=== PATIENT | male | born 2000 | race Caucasian/White ===

== ENCOUNTER → 2023-07-04 07:03 | Outpatient (REF) | payer BC, SELFPAY ==
[2023-07-04 08:34] LABS: % Basophils 0.8 % (0-2); % Eosinophils 2.3 % (0-6); % Immature Granulocytes 0.4 % (0-0.5); % Lymphocytes 35.3 % (20.5-51.1); % Monocytes 9.9 % (1.7-9.3); % Neutrophils 51.3 % (42.2-75.2); Absolute Eosinophils 0.1 10^3/uL (0-0.7); Absolute Lymphocytes 1.7 10^3/uL (1.2-3.4); Absolute Monocytes 0.5 10^3/uL (0.1-0.6); Absolute Neutrophils 2.5 10^3/uL (1.4-6.5); Hematocrit 45.2 % (39.0-52.0); Hemoglobin 15.3 g/dL (13.0-18.0); Mean Corp Hgb Conc. 33.8 g/dL (33.0-37.0); Mean Corpuscular Hgb 29.4 pg (27.0-31.0); Mean Corpuscular Volume 86.8 fL (80.0-94.0); Mean Platelet Volume 10.1 fL (7.4-10.4); Nucleated Red Blood Cells % 0 % (-); Platelet Count 231 10^3/uL (130-400); Red Blood Cell Count 5.21 10^6/uL (4.70-6.10); Red Cell Dist. Width 11.7 % (11.5-14.5); White Blood Cell Count 4.9 10^3/uL (4.8-10.8)
[2023-07-04 09:31] LABS: ALT (SGPT) 18 U/L (0-50); AST (SGOT) 24 U/L (17-59); Albumin 4.8 g/dl (3.5-5.0); Alkaline Phosphatase 71 U/L (38-126); Blood Urea Nitrogen 14 mg/dl (9-20); Calcium 9.4 mg/dl (8.4-10.2); Carbon Dioxide 27 mmol/L (22-30); Chloride 104 mmol/L (98-107); Glucose 79 mg/dl (70-99); HDL Cholesterol 74 mg/dl; LDL Cholesterol, Calculated 81 mg/dl; Potassium 4.1 mmol/L (3.5-5.1); Sodium 138 mmol/L (135-145); Total Bilirubin 2.3 mg/dl (0.2-1.3); Total Cholesterol 164 mg/dl (50-199); Total Protein 7.6 g/dl (6.3-8.2); Triglyceride 49 mg/dl (10-149); Very Low Density Lipoprotein 9 mg/dl (0-30); eGFR > 60.00
== END ==
LOC: REG 07:03
PROVIDERS: ATTENDING PHYSICIAN Physician Assistant
DX: R42 Dizziness and giddiness (principal); Z82.49 Family history of ischemic heart disease and other diseases of the circulatory system; Z13.220 Encounter for screening for lipoid disorders
CPT/HCPCS: 36415; 80053; 80061; 85025

== ENCOUNTER 2023-09-01 18:07 | Emergency (ER) | payer BC, SELFPAY ==
[2023-09-01 18:12] VITALS: BP 120/82
[2023-09-01 18:30] LABS: % Basophils 0.5 % (0-2); % Eosinophils 1.3 % (0-6); % Immature Granulocytes 0.3 % (0-0.5); % Neutrophils 60.9 % (42.2-75.2); Absolute Eosinophils 0.1 10^3/uL (0-0.7); Absolute Lymphocytes 2.2 10^3/uL (1.2-3.4); Absolute Monocytes 0.6 10^3/uL (0.1-0.6); Absolute Neutrophils 4.7 10^3/uL (1.4-6.5); Hemoglobin 14.2 g/dL (13.0-18.0); Mean Corp Hgb Conc. 34.6 g/dL (33.0-37.0); Mean Corpuscular Hgb 29.5 pg (27.0-31.0); Mean Corpuscular Volume 85.2 fL (80.0-94.0); Mean Platelet Volume 9.7 fL (7.4-10.4); Nucleated Red Blood Cells % 0 % (-); Platelet Count 224 10^3/uL (130-400); Red Blood Cell Count 4.81 10^6/uL (4.70-6.10); Red Cell Dist. Width 11.8 % (11.5-14.5); White Blood Cell Count 7.7 10^3/uL (4.8-10.8)
[2023-09-01 18:40] LABS: ALT (SGPT) 14 U/L (0-50); AST (SGOT) 23 U/L (17-59); Albumin 4.9 g/dl (3.5-5.0); Alkaline Phosphatase 69 U/L (38-126); Blood Urea Nitrogen 18 mg/dl (9-20); Carbon Dioxide 27 mmol/L (22-30); Chloride 102 mmol/L (98-107); Glucose 91 mg/dl (70-99); Potassium 4.3 mmol/L (3.5-5.1); Sodium 136 mmol/L (135-145); Total Bilirubin 2.1 mg/dl (0.2-1.3); Total Protein 7.4 g/dl (6.3-8.2); eGFR > 60.00
[2023-09-01 22:26] LABS: Lipase 111 U/L (23-300)
--- NOTE | 2023-09-01 23:44 | ED.GENMED ---
History of Present Illness
<Gretchen Steven NP - Last Filed: 09/03/23 15:06>
General
Chief Complaint: Abdominal Pain
Source: patient and family
Exam Limitations: none
Time Seen by Provider: 09/01/23 21:37
Nursing documentation reviewed up to this point in time: agreed with
Travel History
Have you had any contact with someone who has COVID-19?: No
Do you have any symptoms of coronavirus? Fever > 100 degrees, chills, cough, shortness of breath, sore throat, loss of taste or smell, muscle aches, or headache?: No
History of Present Illness
History of Present Illness:
Patient to ED with complaint of RLQ and flank pain. SYmptoms started last PM and continued to worsen. Denies fever/chill. +nausea. No vomiting or diarrhea. Brought to ED by mother for eval. NO prior history of same.
Past History
<Grecthen Steven NP - Last Filed: 09/03/23 15:06>
Past History
ED Past Medical History: None
ED Past Surgical History: None
Patient has exhibited threatening behavior?: No
Review of Systems
<Gretchen Steven NP - Last Filed: 09/03/23 15:06>
Review of Systems
Allergies reviewed?: Yes
All Other Systems: ROS reviewed and negative except as documented in HPI and ROS
Constitutional: Reports no symptoms
EENT: Reports no symptoms
Respiratory: Reports no symptoms
Cardiac: Reports no symptoms
ABD/GI: Reports abdominal pain (RLQ and flank pain)
: Reports no symptoms
Musculoskeletal: Reports no symptoms
Skin: Reports no symptoms
Neurological: Reports no symptoms
Psychiatric: Reports no symptoms
Phy Exam
<Gretchen Steven NP - Last Filed: 09/03/23 15:06>
General Physical Exam
General Presentation: well appearing and no apparent distress
General age: appears stated age
General Skin: warm and dry
General Habitus: normal
General Mental: alert
Cardiovascular Exam
Cardiovascular Exam: regular rate/rhythm and no edema
Pulmonary Exam
Pulmonary Exam: lungs clear, no respiratory distress and chest non tender
Gastrointestinal Exam
Gastrointestinal Exam: normal bowel sounds, soft, no organomegaly, no pulsatile mass, non distended and no cva tenderness
Palpation: right lower quadrant: Moderate tenderness
Musculoskeletal Exam
Musculoskeletal Exam: full ROM and neuro vasc intact
Skin Exam
Skin Exam: normal color, warm/dry and no rash
Psychiatric Exam
Psychiatric Exam: normal mood/affect
Course
<Gretchen Steven, [employer] - Last Filed: 09/03/23 15:06>
Orders/Labs/Results
Orders:
Orders
09/01/23 18:19
Complete Blood Count/With Diff Urgent
Comprehensive Metabolic Panel Urgent
Lipase Urgent
09/01/23 21:54
US Abdomen - Appendix Only Urgent
Comment:
Reason For Exam: RLQ pain
US Abdomen Complete/Upper Urgent
Comment:
Reason For Exam: RUQ, flank pain
09/01/23 21:55
Add On- LAB Urgent
Tests Added?: Lipase
09/01/23 22:59
CT Abd/pelvis W Iv Cont Urgent
Comment:
Reason For Exam: RLQ pain
09/01/23 23:33
Urinalysis Reflex To Culture Urgent
Date Specimen was Collected: 09/01/23
Time Specimen was Collected: 23:27
Abnormal Lab Results
09/01/23 09/01/23
18:19 23:33
Total Bilirubin 2.1 H mg/dl
(0.2-1.3)
Urine Ketones 2+ A
(Negative)
09/01/23 18:19
09/01/23 18:19
Vital Signs
Initial and Last Documented VS:
Initial Vital Signs
Temp Pulse Resp BP Pulse Ox
98.6 F 69 18 120/82 99
09/01/23 18:12 09/01/23 18:12 09/01/23 18:12 09/01/23 18:12 09/01/23 18:12
Last Documented Vital Signs
Temp Pulse Resp BP Pulse Ox
98.6 F 69 18 120/82 99
09/01/23 18:12 09/01/23 18:12 09/01/23 18:12 09/01/23 18:12 09/01/23 18:12
<Linus Perea, DO - Last Filed: 09/02/23 00:37>
Orders/Labs/Results
Orders:
Orders
09/01/23 18:19
Complete Blood Count/With Diff Urgent
Comprehensive Metabolic Panel Urgent
Lipase Urgent
09/01/23 21:54
US Abdomen - Appendix Only Urgent
Comment:
Reason For Exam: RLQ pain
US Abdomen Complete/Upper Urgent
Comment:
Reason For Exam: RUQ, flank pain
09/01/23 21:55
Add On- LAB Urgent
Tests Added?: Lipase
09/01/23 22:59
CT Abd/pelvis W Iv Cont Urgent
Comment:
Reason For Exam: RLQ pain
09/01/23 23:33
Urinalysis Reflex To Culture Urgent
Date Specimen was Collected: 09/01/23
Time Specimen was Collected: 23:27
Abnormal Lab Results
09/01/23 09/01/23
18:19 23:33
Total Bilirubin 2.1 H mg/dl
(0.2-1.3)
Urine Ketones 2+ A
(Negative)
09/01/23 18:19
09/01/23 18:19
Vital Signs
Initial and Last Documented VS:
Initial Vital Signs
Temp Pulse Resp BP Pulse Ox
98.6 F 69 18 120/82 99
09/01/23 18:12 09/01/23 18:12 09/01/23 18:12 09/01/23 18:12 09/01/23 18:12
Last Documented Vital Signs
Temp Pulse Resp BP Pulse Ox
98.6 F 69 18 120/82 99
09/01/23 18:12 09/01/23 18:12 09/01/23 18:12 09/01/23 18:12 09/01/23 18:12
<Linus Perea, DO - Last Filed: 09/02/23 00:37>
*Radiology
Radiology exam reviewed: radiology read reviewed (CT abdomen pelvis no acute findings, ultrasound abdomen no acute findings)
*Pulse Oximetry
Patient hypoxic: no
*EKG
Interpreted by ED Provider?: NA
*Security Controls Assessor Interpretation
Rate: Security Controls Assessor- N/A
*Critical Care Note
Total Time (30-74mins, 75-104mins- exclusive of procedures): Not Applicable
ED Attending Note
<Gretchen Steven [employer] - Last Filed: 09/03/23 15:06>
-
Portions of this chart may have been created with voice recognition software.� Occasional wrong word or��sound alike� substitutions may have occurred due to the inherent limitations of voice recognition software.
<Linus Perea, - Last Filed: 09/02/23 00:37>
ED Attending Note
Patient seen and examined by attending physician: Yes
ED Attending Note:
I have reviewed and agree with history and treatment plan by Gretchen Steven. My exam revealed 23-year-old male in no acute distress. CT abdomen pelvis no acute findings. Ultrasound no acute findings. Stable for discharge.
Discharge Plan
Departure
Patient Disposition: Home (Routine Discharge)
Date of Disposition: 09/02/23
Time of Disposition: 00:36
Patient with high blood pressure during this ER visit?: No
Condition: Good
Covid-19: Not Applicable
Discharge Problem:
Abdominal pain
Instructions: Abdominal Pain
Referrals:
Marilyn Dailey PA [Family Provider] - Call in 1-3 days for appt
Activity Restrictions/Additional Instructions:
Return to the emergency department immediately for any changes in/worsening of your symptoms.
Interventions
Interventions:
*Risk Screen - Suicide Last Done: 09/01/23 18:12
*General Assessment Last Done: 09/01/23 18:12
*Neglect/Abuse Screening Last Done: 09/01/23 18:12
ED- Fall Risk Assessment Last Done: 09/01/23 22:41
*ED COVID-19 Vaccine History Last Done: 09/01/23 18:12
*Nursing Disposition Last Done: 09/02/23 00:50
LK-Atrnez-Befppkzezn Assessment Last Done: 09/01/23 22:41
Discharge Date and Time
Discharge Date/Time: 09/02/23 00:57
Print Language: IRISH
[2023-09-01 23:45] LABS: Urine Albumin Negative (Neg - Trace); Urine Bilirubin Negative (Negative); Urine Character Clear (Clear); Urine Color Yellow; Urine Glucose Negative (Negative); Urine Ketone 2+ (Negative); Urine Leukocyte Negative (Negative); Urine Nitrite Negative (Negative); Urine Occult Blood Negative (Negative); Urine Specific Gravity 1.015 (<1.030); Urine Urobilinogen Negative (Neg - 1+); Urine pH 6.5 (5.0-9.0)
== END 2023-09-02 00:57 | disposition home or self-care (01) ==
LOC: EMR 18:07
PROVIDERS: Emergency Medicine; Nurse Practitioner; EMERGENCY PHYSICIAN Emergency Medicine; FAMILY PHYSICIAN Physician Assistant
DX: R10.31 Right lower quadrant pain (principal)
CPT/HCPCS: 99284; 74177; 76700; 76705; 80053; 81003; 83690; 85025; Q9967

== ENCOUNTER → 2024-03-04 13:32 | Outpatient (REF) | payer BC, SELFPAY ==
[2024-03-04 15:14] LABS: % Eosinophils 1.6 % (0-6); % Immature Granulocytes 0.4 % (0-0.5); % Lymphocytes 31.5 % (20.5-51.1); % Monocytes 10.6 % (1.7-9.3); % Neutrophils 54.9 % (42.2-75.2); Absolute Basophils 0.1 10^3/uL (0-0.2); Absolute Eosinophils 0.1 10^3/uL (0-0.7); Absolute Lymphocytes 1.6 10^3/uL (1.2-3.4); Absolute Monocytes 0.5 10^3/uL (0.1-0.6); Absolute Neutrophils 2.8 10^3/uL (1.4-6.5); Hematocrit 42.5 % (39.0-52.0); Hemoglobin 14.5 g/dL (13.0-18.0); Mean Corp Hgb Conc. 34.1 g/dL (33.0-37.0); Mean Corpuscular Volume 87.8 fL (80.0-94.0); Mean Platelet Volume 10.2 fL (7.4-10.4); Nucleated Red Blood Cells % 0 % (-); Platelet Count 215 10^3/uL (130-400); Red Blood Cell Count 4.84 10^6/uL (4.70-6.10); Red Cell Dist. Width 11.7 % (11.5-14.5); White Blood Cell Count 5.1 10^3/uL (4.8-10.8)
[2024-03-04 15:53] LABS: TSH Reflex To Free T4 1.02 uIU/ml (0.47-4.68)
== END ==
LOC: REG 13:32
PROVIDERS: ATTENDING PHYSICIAN Physician Assistant
DX: R63.4 Abnormal weight loss (principal)
CPT/HCPCS: 36415; 84443; 85025